=== PATIENT | male | born 1945 ===

== ENCOUNTER 2018-07-11 14:57 | Outpatient (RCR) | payer MEDICARE ==
[2018-07-10 13:37] VITALS: BMI 25.9
[~2018-07-11 14:57] MED LIST: ACET-1966 PO; ASPI-757 PO; CHLO-120 PO; FINA5TAB67 PO; MULT-1335 PO; ROS10 PO; allergy shot IM
--- NOTE | 2018-07-13 09:54 | Transitional Care Management ---
Assessment Visit Type: Telephone Visit Spoke with: Cricket Musculoskeletal, Exercise: WNL Except Musculoskeletal, Excercise Com: 07/13 going slow. havent been out of the house yet. trying to be careful with using furniture to guide him and being careful with foot placement Mobility/Falls: WNL Mobility Comment: 07/13 has less numbness on left. Reminded him to ask for PT order Feeling of Well Being: WNL Feeling of Well Being Comment: 07/13 very tired at dc and slelpt a lot yesterday. good to be home. feels safe Pain/Management: WNL Scheduled Follow-Up with Provi: Yes (Sees Dat 07/14) Questions for Future PCP Visit: 07/13 needs PT and order for crestor TCM Discharge Criteria Medication Knowledge: 07/13 daily crestor and ASA added Disease Management/Concern/Wha: s/s CVA Red/Yellow Flags: s/s CVA Transitional Care Comment: 07/11 Pt doing well plan on going home today. He is otherwise pretty healthy. He is active and is very interested and open abolut learning all he can about strokes. 07/13 Review s/s CVA or if numbness/tingling/pain returns. Has new medicine and is going slow and is careful at home. Able to state s/s CVA and to report it MARIKA. Copies to: TIKI VILLA MD ; FERMÍN COBB Jul 13, 2018 09:54
--- NOTE | 2018-07-21 13:40 | Transitional Care Management ---
Assessment Musculoskeletal, Exercise: WNL Except Musculoskeletal, Excercise Com: 07/13 going slow. havent been out of the house yet. trying to be careful with using furniture to guide him and being careful with foot placement Mobility/Falls: WNL Mobility Comment: 07/13 has less numbness on left. Reminded him to ask for PT order Feeling of Well Being: WNL Feeling of Well Being Comment: 07/13 very tired at dc and slelpt a lot yesterday. good to be home. feels safe Pain/Management: WNL Scheduled Follow-Up with Provi: Yes (Sees Dat 07/14) Questions for Future PCP Visit: 07/13 needs PT and order for crestor TCM Discharge Criteria Medication Knowledge: 07/13 daily crestor and ASA added Disease Management/Concern/Wha: s/s CVA Red/Yellow Flags: s/s CVA Transitional Care Comment: 07/11 Pt doing well plan on going home today. He is otherwise pretty healthy. He is active and is very interested and open abolut learning all he can about strokes. 07/13 Review s/s CVA or if numbness/tingling/pain returns. Has new medicine and is going slow and is careful at home. Able to state s/s CVA and to report it MARIKA. 07/21 Left Message. THELMA RIVAS Jul 21, 2018 13:40
--- NOTE | 2018-07-22 10:47 | Transitional Care Management ---
Assessment Visit Type: Telephone Visit Musculoskeletal, Exercise: WNL Except Musculoskeletal, Excercise Com: 07/13 going slow. havent been out of the house yet. trying to be careful with using furniture to guide him and being careful with foot placement Mobility/Falls: WNL Mobility Comment: 07/13 has less numbness on left. Reminded him to ask for PT order Feeling of Well Being: WNL Feeling of Well Being Comment: 07/13 very tired at dc and slelpt a lot yesterday. good to be home. feels safe Pain/Management: WNL Scheduled Follow-Up with Provi: Yes (Sees Dat 07/14) Questions for Future PCP Visit: 07/13 needs PT and order for crestor TCM Discharge Criteria Medication Knowledge: 07/13 daily crestor and ASA added Disease Management/Concern/Wha: s/s CVA Red/Yellow Flags: s/s CVA Transitional Care Comment: 07/11 Pt doing well plan on going home today. He is otherwise pretty healthy. He is active and is very interested and open abolut learning all he can about strokes. 07/13 Review s/s CVA or if numbness/tingling/pain returns. Has new medicine and is going slow and is careful at home. Able to state s/s CVA and to report it MARIKA. 07/21 Left Message. 07/22 left message LUCIUS BRUSH Jul 22, 2018 10:47
--- NOTE | 2018-07-27 13:06 | Transitional Care Management ---
Assessment Musculoskeletal, Exercise: WNL Except Musculoskeletal, Excercise Com: 07/13 going slow. havent been out of the house yet. trying to be careful with using furniture to guide him and being careful with foot placement Mobility/Falls: WNL Mobility Comment: 07/13 has less numbness on left. Reminded him to ask for PT order Feeling of Well Being: WNL Feeling of Well Being Comment: 07/13 very tired at dc and slelpt a lot yesterday. good to be home. feels safe Pain/Management: WNL Scheduled Follow-Up with Provi: Yes (Sees Dat 07/14) Questions for Future PCP Visit: 07/13 needs PT and order for crestor TCM Discharge Criteria Medication Knowledge: 07/13 daily crestor and ASA added Disease Management/Concern/Wha: s/s CVA Red/Yellow Flags: s/s CVA Transitional Care Comment: 07/11 Pt doing well plan on going home today. He is otherwise pretty healthy. He is active and is very interested and open abolut learning all he can about strokes. 07/13 Review s/s CVA or if numbness/tingling/pain returns. Has new medicine and is going slow and is careful at home. Able to state s/s CVA and to report it MARIKA. 07/21 Left Message. 07/22 left message 07/27 left message FERMÍN COBB Jul 27, 2018 13:06
--- NOTE | 2018-07-30 13:51 | Transitional Care Management ---
Assessment Musculoskeletal, Exercise: WNL Except Musculoskeletal, Excercise Com: 07/13 going slow. havent been out of the house yet. trying to be careful with using furniture to guide him and being careful with foot placement Mobility/Falls: WNL Mobility Comment: 07/13 has less numbness on left. Reminded him to ask for PT order Feeling of Well Being: WNL Feeling of Well Being Comment: 07/13 very tired at dc and slelpt a lot yesterday. good to be home. feels safe Pain/Management: WNL Scheduled Follow-Up with Provi: Yes (Sees Dat 07/14) Questions for Future PCP Visit: 07/13 needs PT and order for crestor TCM Discharge Criteria Medication Knowledge: 07/13 daily crestor and ASA added Disease Management/Concern/Wha: s/s CVA Red/Yellow Flags: s/s CVA Transitional Care Comment: 07/11 Pt doing well plan on going home today. He is otherwise pretty healthy. He is active and is very interested and open abolut learning all he can about strokes. 07/13 Review s/s CVA or if numbness/tingling/pain returns. Has new medicine and is going slow and is careful at home. Able to state s/s CVA and to report it MARIKA. 07/21 Left Message. 07/22 left message 07/27 left message 07/30 left message with s/s CVA to report and dc pt FERMÍN COBB Jul 30, 2018 13:51
== END 2018-08-01 09:23 | disposition home or self-care (01) ==
LOC: TCM 14:57
PROVIDERS: ATTEND Nurse Practitioner
DX: Z02.9 Encounter for administrative examinations, unspecified (principal)